=== PATIENT | female | born 1995 | race Caucasian/White ===

== ENCOUNTER 2019-11-30 06:22 | Inpatient (IN) ==
[2019-11-30] MEDS ORDERED: RINGER'S SOLUTION,LACTATED 1,000 ML IV ONE (06:40)
[2019-11-30] MEDS ORDERED: VANCOMYCIN/WATER FOR INJ (PEG) 2 GM/400 ML BAG IV ONE (06:40)
[2019-11-30] MEDS ORDERED: OXYTOCIN/DEXTROSE 5%-WATER 30 UNITS/500 ML BAG IV ONE (06:40)
[2019-11-30] MEDS ORDERED: ONDANSETRON 4 MG TAB.RAPDIS PO PRN (06:40)
[2019-11-30 07:36] LABS: Cocaine Ur Negative (NEGATIVE); Urine Barbiturate Negative (NEGATIVE); Urine Benzodiazepines Negative (NEGATIVE); Urine Opiates Negative (NEGATIVE); Urine PCP Negative (NEGATIVE); Urine THC Negative (NEGATIVE)
[2019-11-30] MEDS: DEXTROSE 5%-LACTATED RINGERS 1,000 ML IV PRN ×2 (07:42→15:46)
--- NOTE | 2019-11-30 10:48 | HP ---
Chief Complaint - Chief Complaint Date of Service: 11/30/19 Time of Service: 08:45 Chief Complaint: Induction of labor for post-dates History of Present Illness: 24 yo at 40 3/7 weeks presents for induction of labor due to post-dates. This complicated by anemia, anxiety/depresson, late PNC, smoker, h/o THC/meth use prior to . Rh positive Rubella nonimmune GBS positive - PCN resistant Medical History (Last Reviewed 11/30/19 @ 10:41 by Claude Logan DO) Tobacco abuse (Chronic) Anemia (Chronic) Onset Date: 08/23/19 w/ Perirectal abscess Onset Date: ~04/06/18 left buttock Migraines Surgical History: Surgical History (Last Reviewed 11/30/19 @ 10:41 by Claude Logan DO) History of incision and drainage Onset Date: ~04/06/18 [place]-perirectal abscess left buttock History of tonsillectomy History of ear surgery Onset Date: Unknown left-for tumor behind ear-benign History of shoulder surgery Onset Date: Unknown left Family History: Family History (Last Reviewed 11/30/19 @ 10:41 by Claude Logan DO) Father Alive and well Mother Alive and well Sister Alive and well 2 sisters Other Family history non-contributory Social History: (Last Reviewed 11/30/19 @ 10:41 by Claude Logan DO) Social History: Marital status: Single current occupational status: employed current occupation: [employer] Highest education level completed: 9th grade Service: No Tobacco: Smoking Status: Current every day smoker tobacco type: cigarettes Alcohol: alcohol intake: former Substance Use: substance use type: marijuana, methamphetamine Dietary Habits: caffeine: Yes Personal Safety: victim of physical abuse: No victim of emotional abuse: No Review Of Systems (GEN) - Review of Systems Generalized/Overall Review: Present: No Symptoms Reported EENTM: Present: No Symptoms Reported Respiratory: Present: No Symptoms Reported Cardiac: Present: No Symptoms Reported Abdominal: Present: No Symptoms Reported Genitourinary: Present: No Symptoms Reported Musculoskeletal: Present: No Symptoms Reported Neurological: Present: No Symptoms Reported Skin: Present: No Symptoms Reported Endocrine: Present: No Symptoms Reported Immunizations: IMMUNIZATION HX Immunizations Up to Date Yes History of Influenza Vaccine No Hx Pneumococcal Vaccination No Allergies/Adverse Reactions: Allergies Allergy/AdvReac Type Severity Reaction Status Date / Time Penicillins AdvReac Intermediate Nausea, Verified 11/30/19 06:41 migraine Home Medications: HOME MEDICATIONS Ferrous Sulfate 325 mg PO 11/30/19 [Last Taken Unknown] Exam - Exam Vital Signs: Vital Signs - Last Taken Temp 36.5 C 11/30/19 08:05 Pulse 78 11/30/19 08:05 Resp 18 11/30/19 08:05 BP 139/94 H 11/30/19 08:05 Pulse Ox 96 11/30/19 08:05 Constitutional: Present: Alert, Oriented x3, Cooperative, No distress ENT Exam: Present: hearing grossly normal Neck: Absent: thyromegaly Respiratory: Present: lungs clear, no respiratory distress Cardiovascular/Chest: Present: normal peripheral pulses, regular rate, rhythm, no edema Abdomen: Present: soft, nontender, no rebound tenderness, other - Gravid /Rectal: Present: Other - Cervix - 3/70/-3 Extremity: Present: no pedal edema, no calf tenderness Skin Exam: Present: normal color, warm/dry, no cyanosis Neurologic: Present: alert, normal mood/affect, oriented x 3 Appearance: Present: appropriate appearance, appropriate insight Eye contact: Present: cooperative, good eye contact Thoughts: Present: normal thought pattern Diagnostic Studies: Laboratory Results Urine Opiates Screen Negative (NEGATIVE) 11/30/19 06:45 Barbiturate Screen Negative (NEGATIVE) 11/30/19 06:45 Ur Phencyclidine Scrn Negative (NEGATIVE) 11/30/19 06:45 Urine Amphetamine Negative (NEGATIVE) 11/30/19 06:45 U Benzodiazepines Scrn Negative (NEGATIVE) 11/30/19 06:45 Urine Cocaine Screen Negative (NEGATIVE) 11/30/19 06:45 Urine Marijuana (THC) Negative (NEGATIVE) 11/30/19 06:45 Assessment/Plan - Assessment/Plan (1) Post-dates Assessment: Admit for pitocin induction of labor. IV vancomycin for GBS prophylaxis. UDS. Epidural PRN. Problem: Acute Qualifiers: Post-term type: 40-42 weeks gestation Qualified Code(s): O48.0 - Post-term (2) Group B streptococcal carriage complicating Problem: Acute (3) Anxiety and depression Problem: Chronic (4) Tobacco abuse Problem: Chronic (5) Anemia Problem: Chronic Qualifiers: Anemia type: iron deficiency Iron deficiency anemia type: inadequate dietary iron intake Qualified Code(s): D50.8 - Other iron deficiency anemias (6) History of substance abuse Problem: Chronic
[2019-11-30] MEDS: VANCOMYCIN/WATER FOR INJ (PEG) 1 GM/200 ML BAG IV SCH (18:54)
[2019-11-30] MEDS ORDERED: BUPIVACAINE HCL/0.9 % NACL/PF 250 ML EP PRN (19:07)
[2019-11-30] MEDS ORDERED: NALOXONE HCL 1 MG/1 ML SYRG IV PRN (19:07)
[2019-11-30] MEDS ORDERED: ONDANSETRON HCL/PF 2 MG/ML VIAL IV PRN (19:07)
[2019-11-30] MEDS ORDERED: fentaNYL CITRATE/PF 50 MCG/ML AMPUL IT SCH (19:15)
--- NOTE | 2019-11-30 20:07 | ANES ---
Post Anesthesia Discharge - Transfer of Care Transfer of Care handoff given to nurse: Yes - Anesthesia Post Op Note Anesthesia Post Op Note: care transferred to OB RN
--- NOTE | 2019-11-30 20:07 | ANES ---
Anesthesia Pre Procedure Eval Vitals/Labs: Last Vital Signs Temp 36.5 C 11/30/19 08:05 Pulse 78 11/30/19 08:05 Resp 18 11/30/19 08:05 BP 139/94 H 11/30/19 08:05 Pulse Ox 96 11/30/19 08:05 HOME MEDICATIONS RX: Ferrous Sulfate 325 mg PO 11/30/19 [Last Taken Unknown] Allergies/Adverse Reactions: Allergies Allergy/AdvReac Type Severity Reaction Status Date / Time Penicillins AdvReac Intermediate Nausea, Verified 11/30/19 06:41 migraine - Planned Procedure Planned Procedure: medical induction post dates Medication List Reviewed:: Yes Allergies Verified: Yes Medical History (Last Reviewed 11/30/19 @ 20:06 by Dean Gomez CRNA) Tobacco abuse (Chronic) Anemia (Chronic) Onset Date: 08/23/19 w/ Perirectal abscess Onset Date: ~04/06/18 left buttock Migraines Surgical History (Last Reviewed 11/30/19 @ 20:06 by Dean Gomez CRNA) History of incision and drainage Onset Date: ~04/06/18 [place]-perirectal abscess left buttock History of tonsillectomy History of ear surgery Onset Date: Unknown left-for tumor behind ear-benign History of shoulder surgery Onset Date: Unknown left Family History (Last Reviewed 11/30/19 @ 20:06 by Dean Gomez CRNA) Father Alive and well Mother Alive and well Sister Alive and well 2 sisters Other Family history non-contributory - Family Anesthesia History Family History:: no untoward family reactions to anesthesia - Airway/Neck/Teeth Within Normal Limits:: Yes Teeth Condition: intact Neck Exam: full range of motion Mallampatti Score: 2 Thyromental (T-M) distance: > 6 cm Mandibulo Hyoid distance: > 3 cm - Respiratory Respiratory Physical: lungs clear Smoking Status: Current every day smoker Discussed smoking cessation including day of surgery: Yes Sleep Apnea currently treated: No Sleep Apnea by current assessment: No - Cardiovascular Tolerate Activity: Good Heart Sounds: S1 & S2, Regular - Gastrointestinal NPO since: 1300 - Anesthesia Assessment and Plan ASA Class: PS, II, E Anesthesia Type Plan: Epidural Planned difficult intubation/equipment available: No
--- NOTE | 2019-11-30 20:07 | ANES ---
Post Anesthesia Assessment - Vital Signs Vitals: Last Vital Signs Temp 36.5 C 11/30/19 08:05 Pulse 78 11/30/19 08:05 Resp 18 11/30/19 08:05 BP 139/94 H 11/30/19 08:05 Pulse Ox 96 11/30/19 08:05 Airway Patency: Normal - Mental Status Level Of Consciousness: Awake - Pain Level Pain Score: 2 - N/V Assessment Nausea/Vomiting Presence: None Dehydration:: No
--- NOTE | 2019-11-30 20:09 | ANES ---
Anesthesia Procedure Note Procedure Note: ANESTHESIA PROCEDURE NOTE Date of Procedure: 11/30/2019 Time of procedure: 1954. Performed by: Td Gomez CRNA Production Technologist: None. Preprocedure diagnosis: Active labor. Post procedure diagnosis: Same. Procedure: Insertion of labor epidural. Indications: The patient is a 24-year-old prima para female in active labor requesting labor epidural for pain management. Findings: See below. Details of the procedure: The patient was placed in a sitting position. Back was prepped with DuraPrep. Patient was then draped in a sterile fashion. Lidocaine 1% was infiltrated to the skin and subcutaneous tissues at the level of the L3 4 interspace. The epidural space was identified using a 18-gauge Tuohy needle with [id number] technique. 20 mcg fentanyl was given intrathecally using a 27 ga. spinal needle. Epidural catheter was inserted without difficulty. Negative test dose was elicited using 5 mL of 1.5% preservative-free lidocaine plus epinephrine 1 200,000. The epidural catheter was then taped and secured in place. EBL: Minimal. Fluids: N/A. Specimen: N/A. Post procedure condition: The patient tolerated the procedure well. No complications were noted. Thank you for this consultation. Rudd CRNA
--- NOTE | 2019-11-30 20:20 | PN ---
Progess Note - Interim Date: 11/30/19 Time: 20:18 Narrative: 11/30/19 20:18 Patient comfortable with epidural Vital signs stable. Pitocin at 12 mu/min. FHT: 140 baseline, reassuring contractions q 2-3 min Cervix: 4-5/70 5/-2, AROM-clear Impression: Intrauterine at 40 3/7 weeks induction of labor for postdates. GBS positive-on second dose of IV vancomycin Plan: Continue present plan
[2019-12-01] MEDS: VANCOMYCIN/WATER FOR INJ (PEG) 1 GM/200 ML BAG IV SCH (06:36)
[2019-12-01] MEDS ORDERED: BISACODYL 10 MG SUPP.RECT RC PRN (10:57)
[2019-12-01] MEDS ORDERED: GLYCERIN/WITCH HAZEL LEAF 40 APPL BOX TP PRN (10:57)
[2019-12-01] MEDS ORDERED: BENZOCAINE/MENTHOL 81 SPRAY CAN TP PRN (10:57)
[2019-12-01] MEDS ORDERED: OXYTOCIN/DEXTROSE 5%-WATER 30 UNITS/500 ML BAG IV ONE (10:57)
[2019-12-01] MEDS ORDERED: SENNOSIDES 8.6 MG TABLET PO PRN (10:57)
[2019-12-01] MEDS ORDERED: HYDROCORTISONE 30 APPL TUBE TP PRN (10:57)
[2019-12-01] MEDS ORDERED: IBUPROFEN 800 MG TABLET PO PRN (10:57)
--- NOTE | 2019-12-01 11:26 | OR ---
Operative Report - Dictated Report Narrative: Spontaneous vaginal delivery of vigorously crying viable male at 1041 on 12/01/2019 with Apgars 9 and 9, weighing 3046 g in SASHA position. Cord clamping delayed approximately 1 minute Placenta delivered complete, intact, with three vessel cord Estimated blood loss: 100 mL Anesthesia: Epidural Lacerations: Bilateral labial abrasions with no repair needed. History for MU History for Definition: * The number of deliveries resulting in a live the patient experienced prior to current hospitalization * The previous delivery of live twins or any live multiple gestation is consid ered one live event. *If primagravida or nulliparous is documented select zero for the number of previous live births. Live Events: Live Events: 0
--- NOTE | 2019-12-01 11:31 | PN ---
Progess Note - Interim Date: 12/01/19 Time: 11:27 Narrative: 12/01/19 11:27 Called to room by nurse because patient was lightheaded nauseous with ringing in her ears and passed 1 very large clot vaginally. Vitals were stable. Patient appeared mildly pale. Large 15-16 cm clot on pad/chock. Uterus was at umbilicus. Large amount of clot was evacuated from the uterus which quickly clamped down to approximately 14 cm in diameter. Minimal bleeding noted now. Patient's signs/symptoms resolved. Pitocin was running at 20 milliunits/min and increased to 30 milliunits/min and will remain at this rate for the next few hours. Blood clots weighed approximately 800 g. Impression: hemorrhage due to uterine atony Plan:We will continue to monitor closely. If bleeding increases will give Methergine and Cytotec.
[2019-12-01] MEDS: oxyCODONE HCL/ACETAMINOPHEN 1 TAB TABLET PO PRN ×2 (20:43→23:53)
[2019-12-01] MEDS: IBUPROFEN 800 MG TABLET PO PRN (23:54)
[2019-12-01] MEDS: DOCUSATE SODIUM 100 MG CAPSULE PO SCH (23:56)
[2019-12-02] MEDS: oxyCODONE HCL/ACETAMINOPHEN 1 TAB TABLET PO PRN ×4 (03:13→21:05)
--- NOTE | 2019-12-02 09:34 | PN ---
Subjective - Date and Time Seen Date: 12/02/19 Time: 09:32 Objective - Vitals Vitals: Last Vital Signs Temp 37.0 C 12/02/19 00:36 Pulse 86 12/02/19 00:36 Resp 16 12/02/19 00:36 BP 107/56 12/02/19 00:36 Pulse Ox 98 12/02/19 00:36 Patient denies complaints. Denies any signs or symptoms of hypovolemia/anemia. Lochia wnl abdomen - soft, nontender Uterus -firm, at umbilicus - 1 no calf tenderness Impression: day #1 - s/p spontaneous vaginal delivery. hemorrhage of 800ml due to uterine atony-resolved Plan: Continue routine care Cauti Physician Documentation - Urinary Catheter Management Urethral ([place]) Date of Insertion: 11/30/19 Time of Insertion: 20:45 Date of Removal: 12/01/19 Time of Removal: 10:30 Assessment/Plan - Problems/Diagnosis (1) Post-dates Problem: Acute Qualifiers: Post-term type: 40-42 weeks gestation Qualified Code(s): O48.0 - Post-term (2) Group B streptococcal carriage complicating Problem: Acute (3) Anxiety and depression Problem: Chronic (4) Tobacco abuse Problem: Chronic (5) Anemia Problem: Chronic Qualifiers: Anemia type: iron deficiency Iron deficiency anemia type: inadequate dietary iron intake Qualified Code(s): D50.8 - Other iron deficiency anemias (6) History of substance abuse Problem: Chronic
[2019-12-02] MEDS: IBUPROFEN 800 MG TABLET PO PRN ×2 (11:32→21:04)
[2019-12-02] MEDS: DOCUSATE SODIUM 100 MG CAPSULE PO SCH ×2 (11:33→21:05)
[2019-12-03 07:49] VITALS: BP 125/68
--- NOTE | 2019-12-03 09:17 | PN ---
Subjective - Date and Time Seen Date: 12/03/19 Time: 09:16 Objective - Vitals Vitals: Last Vital Signs Temp 36.9 C 12/03/19 06:50 Pulse 69 12/03/19 06:50 Resp 20 12/03/19 06:50 BP 125/68 12/03/19 06:50 Pulse Ox 99 12/03/19 06:50 Patient denies complaints. Lochia wnl abdomen - soft, nontender Uterus -firm, at umbilicus - 2 no calf tenderness Impression: day #2 - s/p spontaneous vaginal delivery. Mild hemorrhage due to uterine atony-resolved Plan: Routine discharge instructions. Call for increased bleeding. Cauti Physician Documentation - Urinary Catheter Management Urethral ([place]) Date of Insertion: 11/30/19 Time of Insertion: 20:45 Date of Removal: 12/01/19 Time of Removal: 10:30 Assessment/Plan - Problems/Diagnosis (1) Post-dates Problem: Acute Qualifiers: Post-term type: 40-42 weeks gestation Qualified Code(s): O48.0 - Post-term (2) Group B streptococcal carriage complicating Problem: Acute (3) Anxiety and depression Problem: Chronic (4) Tobacco abuse Problem: Chronic (5) Anemia Problem: Chronic Qualifiers: Anemia type: iron deficiency Iron deficiency anemia type: inadequate dietary iron intake Qualified Code(s): D50.8 - Other iron deficiency anemias (6) History of substance abuse Problem: Chronic
[2019-12-03] MEDS: oxyCODONE HCL/ACETAMINOPHEN 1 TAB TABLET PO PRN (10:42)
[2019-12-03] MEDS: IBUPROFEN 800 MG TABLET PO PRN (10:42)
[2019-12-03] MEDS: DOCUSATE SODIUM 100 MG CAPSULE PO SCH (10:43)
[2019-12-04] MEDS ORDERED: FERROUS SULFATE 325 MG TABLET PO SCH (09:00)
== END 2019-12-03 13:00 | disposition home or self-care (01) | DRG 807 ==
LOC: OB 06:22
PROVIDERS: ADMIT Obstetrics & Gynecology; ATTEND Obstetrics & Gynecology
CPT/HCPCS: 59025; 80307